=== PATIENT | female | born 1930 | race Caucasian/White ===

== ENCOUNTER 2017-01-31 10:45 | Inpatient (IN) | payer MEDICARE, OTHER ==
[~2017-01-31] VITALS: Ht 157.5 cm; Wt 75.0 kg
[~2017-01-31 10:45] MED LIST: ASCO-96 PO; CEFD300C37 PO; CITA40TA12 PO; CLON0.12 PO; DOCU-131 PO; DOXY100T PO; FURO-93 PO; GABA800T PO; HYDR-3307 PO; IRON1TAB62 PO; LACT1CAP24 PO; LEVO75TA PO; MORP15TA PO; OMEP20CA9 PO; OXYC5CAP2 PO; POTA20PA25 PO; TAMS-11 PO; TEMA30CA6 PO
[2017-01-31] MEDS ORDERED: CEFTRIAXONE PMX 1GM/50ML 50 ML IVPB ONE (11:30)
[2017-01-31] MEDS ORDERED: SODIUM CHLORIDE 0.9% 1,000ML IVBOLUS ONE ×2 (11:30→17:00)
[2017-01-31] MEDS ORDERED: ACETAMINOPHEN 500 MG TABLET PO ONE (11:30)
[2017-01-31] MEDS ORDERED: CEFTRIAXONE PMX 1GM/50ML 50 ML ONE (11:45)
[2017-01-31] MEDS ORDERED: ACETAMINOPHEN 500 MG TABLET ONE (11:45)
[2017-01-31] MEDS ORDERED: AZITHROMYCIN 500 MG in SODIUM CHLORIDE 0.9% 250 ML IV ONE (12:00)
[2017-01-31 12:08] LABS: HEMATOCRIT 35.1 % (34.6-47.8); HEMOGLOBIN 11.6 g/dL (11.7-16.4); WHITE BLOOD COUNT 12.3 x10^3/uL (3.4-10)
[2017-01-31 12:14] LABS: ASPARTATE AMINO TRANSFERASE 18 U/L (15-37); BLOOD UREA NITROGEN 12 mg/dL (7-18)
[2017-01-31] MEDS ORDERED: BISACODYL 10 MG SUPP PR PRN (13:00)
[2017-01-31] MEDS ORDERED: GUAIFENESIN/DM 200-20MG, 10ML UDC PO PRN ×2 (13:00)
[2017-01-31] MEDS ORDERED: ACETAMINOPHEN 325 MG TABLET PO PRN (13:00)
[2017-01-31] MEDS ORDERED: LABETALOL 5MG/ML, 20ML IVPush PRN (13:00)
[2017-01-31] MEDS ORDERED: ONDANSETRON 2MG/ML, 2ML IVPush PRN (13:00)
[2017-01-31] MEDS ORDERED: DOCUSATE 100 MG CAPSULE PO PRN (13:00)
[2017-01-31] MEDS ORDERED: HYDROcodone/APAP 5/325 TABLET PO PRN (13:00)
[2017-01-31] MEDS ORDERED: hydrALAzine 20 MG/ML, 1ML IVPush PRN (13:00)
[2017-01-31] MEDS ORDERED: POLYETHYLENE GLYCOL 17 GM PACKET PO PRN (13:00)
[2017-01-31] MEDS ORDERED: TRAZODONE 50MG TABLET PO PRN (13:00)
[2017-01-31] MEDS ORDERED: morphine SULFATE 10 MG/ML, 1ML IVPush PRN (13:00)
[2017-01-31] MEDS ORDERED: ONDANSETRON ODT 4 MG PO PRN (13:00)
[2017-01-31] MEDS: CEFTRIAXONE PMX 2GM/50ML 50 ML IV SCH (13:21)
[2017-01-31] MEDS ORDERED: ENOXAPARIN 40 MG/0.4 ML ONE (13:23)
[2017-01-31] MEDS: ENOXAPARIN 40 MG/0.4 ML SQ SCH (13:26)
[2017-01-31 14:54] VITALS: BP 103/61
[2017-01-31 14:57] VITALS: BP 103/61
[2017-01-31] MEDS ORDERED: OXYcodone IR 5MG TABLET PO SCH (16:00)
[2017-01-31] MEDS ORDERED: FLU VACC QS2017-18 (36MOS+) UP/PF 0.5 ML IM-VACC ONE (16:00)
[2017-01-31] MEDS ORDERED: GABAPENTIN 300 MG CAPSULE PO SCH (16:00)
[2017-01-31] MEDS: NS + 20MEQ KCL 1,000 ML IV SCH (16:12)
[2017-01-31 16:20] VITALS: BP 106/61
[2017-01-31 16:52] VITALS: BP 106/65
[2017-01-31] MEDS ORDERED: SODIUM CHLORIDE 0.9%, 500ML IVBOLUS ONE (17:00)
[2017-01-31] MEDS ORDERED: ALBUTEROL/IPRATROPIUM 2.5MG/0.5MG, 3 ML NPPB PRN (17:30)
[2017-01-31 19:35] VITALS: BP 116/63
[2017-01-31] MEDS: POTASSIUM CHLORIDE 20 MEQ PACKET PO SCH (19:53)
[2017-01-31] MEDS: DOCUSATE 100 MG CAPSULE PO SCH (19:53)
[2017-01-31] MEDS: OXYcodone IR 5MG TABLET PO PRN (19:54)
[2017-01-31] MEDS: DOXYCYCLINE 100MG TABLET PO SCH (19:54)
[2017-01-31] MEDS: TEMAZEPAM 30 MG CAPSULE PO SCH (19:54)
[2017-02-01 01:10] VITALS: BP 125/71
[2017-02-01] MEDS: OXYcodone IR 5MG TABLET PO PRN ×4 (01:16→18:32)
[2017-02-01] MEDS: NS + 20MEQ KCL 1,000 ML IV SCH (04:24)
[2017-02-01 05:05] LABS: HEMATOCRIT 29.3 % (34.6-47.8); HEMOGLOBIN 9.8 g/dL (11.7-16.4); WHITE BLOOD COUNT 8.2 x10^3/uL (3.4-10)
[2017-02-01 05:12] LABS: BLOOD UREA NITROGEN 10 mg/dL (7-18)
[2017-02-01] MEDS: LEVOTHYROXINE 75 MCG TABLET PO SCH (05:12)
[2017-02-01 07:05] VITALS: BP 125/79
[2017-02-01] MEDS: OMEPRAZOLE 20 MG CAPSULE.DR PO SCH (08:16)
[2017-02-01] MEDS: TAMSULOSIN 0.4 MG CAP.ER.24H PO SCH (08:29)
[2017-02-01] MEDS: PANTOPROZOLE 40MG TABLET PO SCH (08:29)
[2017-02-01] MEDS: DOCUSATE 100 MG CAPSULE PO SCH ×2 (08:29→20:27)
[2017-02-01] MEDS: POTASSIUM CHLORIDE 20 MEQ PACKET PO SCH ×2 (08:29→20:27)
[2017-02-01] MEDS: DOXYCYCLINE 100MG TABLET PO SCH ×2 (08:35→20:28)
[2017-02-01] MEDS ORDERED: FLU VACC QS2017-18 (36MOS+) UP/PF 0.5 ML IM-VACC ONE (09:00)
[2017-02-01] MEDS ORDERED: FUROSEMIDE 20 MG TABLET PO SCH (09:00)
[2017-02-01] MEDS ORDERED: [UNRECOGNIZED DRUG - OTHER] PO SCH (09:00)
[2017-02-01] MEDS: ENOXAPARIN 40 MG/0.4 ML SQ SCH (13:02)
[2017-02-01] MEDS: CEFTRIAXONE PMX 2GM/50ML 50 ML IV SCH (13:02)
[2017-02-01 14:16] VITALS: BP 147/72
[2017-02-01 19:10] VITALS: BP 148/74
[2017-02-01] MEDS: TEMAZEPAM 30 MG CAPSULE PO SCH (22:00)
[2017-02-02 01:30] VITALS: BP 138/69
[2017-02-02 05:18] LABS: HEMATOCRIT 31.7 % (34.6-47.8); HEMOGLOBIN 10.6 g/dL (11.7-16.4); WHITE BLOOD COUNT 5.3 x10^3/uL (3.4-10)
[2017-02-02] MEDS: OXYcodone IR 5MG TABLET PO PRN ×4 (05:19→16:40)
[2017-02-02] MEDS: LEVOTHYROXINE 75 MCG TABLET PO SCH (05:19)
[2017-02-02 05:21] LABS: BLOOD UREA NITROGEN 8 mg/dL (7-18)
[2017-02-02 06:54] VITALS: BP 131/80
[2017-02-02] MEDS: OMEPRAZOLE 20 MG CAPSULE.DR PO SCH (07:44)
[2017-02-02] MEDS: POTASSIUM CHLORIDE 20 MEQ PACKET PO SCH ×2 (08:13→22:09)
[2017-02-02] MEDS: DOCUSATE 100 MG CAPSULE PO SCH ×2 (08:14→22:08)
[2017-02-02] MEDS: DOXYCYCLINE 100MG TABLET PO SCH ×2 (08:16→21:00)
[2017-02-02] MEDS: PANTOPROZOLE 40MG TABLET PO SCH (08:18)
[2017-02-02] MEDS: TAMSULOSIN 0.4 MG CAP.ER.24H PO SCH (08:18)
[2017-02-02] MEDS: ENOXAPARIN 40 MG/0.4 ML SQ SCH (12:29)
[2017-02-02 12:59] VITALS: BP 136/69
[2017-02-02] MEDS: CEFTRIAXONE PMX 2GM/50ML 50 ML IV SCH (14:11)
[2017-02-02 18:40] VITALS: BP 142/70
[2017-02-02] MEDS: TEMAZEPAM 30 MG CAPSULE PO SCH (22:08)
[2017-02-03 02:12] VITALS: BP 153/75
[2017-02-03] MEDS: OXYcodone IR 5MG TABLET PO PRN ×3 (02:42→20:25)
[2017-02-03 05:25] LABS: HEMATOCRIT 31.2 % (34.6-47.8); HEMOGLOBIN 10.4 g/dL (11.7-16.4); WHITE BLOOD COUNT 4.8 x10^3/uL (3.4-10)
[2017-02-03 05:38] LABS: BLOOD UREA NITROGEN 7 mg/dL (7-18)
[2017-02-03] MEDS: LEVOTHYROXINE 75 MCG TABLET PO SCH (05:56)
[2017-02-03 07:05] VITALS: BP 147/80
[2017-02-03] MEDS: PANTOPROZOLE 40MG TABLET PO SCH (07:30)
[2017-02-03] MEDS: DOXYCYCLINE 100MG TABLET PO SCH ×2 (09:00→20:14)
[2017-02-03] MEDS: DOCUSATE 100 MG CAPSULE PO SCH ×2 (10:16→20:14)
[2017-02-03] MEDS: TAMSULOSIN 0.4 MG CAP.ER.24H PO SCH (10:16)
[2017-02-03] MEDS: OMEPRAZOLE 20 MG CAPSULE.DR PO SCH (10:16)
[2017-02-03] MEDS: POTASSIUM CHLORIDE 20 MEQ PACKET PO SCH ×2 (10:17→20:14)
[2017-02-03 13:03] VITALS: BP 136/76
[2017-02-03] MEDS: ENOXAPARIN 40 MG/0.4 ML SQ SCH (13:38)
[2017-02-03] MEDS: CEFTRIAXONE PMX 2GM/50ML 50 ML IV SCH (13:38)
[2017-02-03] MEDS: GABAPENTIN 300 MG CAPSULE PO SCH ×2 (16:07→20:14)
[2017-02-03 19:44] VITALS: BP 158/83
[2017-02-03] MEDS: TEMAZEPAM 30 MG CAPSULE PO SCH (22:02)
[2017-02-04 03:50] VITALS: BP 150/74
[2017-02-04] MEDS: LEVOTHYROXINE 75 MCG TABLET PO SCH (04:42)
[2017-02-04] MEDS: OXYcodone IR 5MG TABLET PO PRN ×3 (04:42→16:11)
[2017-02-04 07:29] VITALS: BP 126/69
[2017-02-04] MEDS ORDERED: OMEPRAZOLE 20 MG CAPSULE.DR PO SCH (07:30)
[2017-02-04] MEDS: TAMSULOSIN 0.4 MG CAP.ER.24H PO SCH (08:07)
[2017-02-04] MEDS: DOXYCYCLINE 100MG TABLET PO SCH (08:07)
[2017-02-04] MEDS: DOCUSATE 100 MG CAPSULE PO SCH (08:07)
[2017-02-04] MEDS: POTASSIUM CHLORIDE 20 MEQ PACKET PO SCH (08:08)
[2017-02-04] MEDS: GABAPENTIN 300 MG CAPSULE PO SCH ×2 (08:08→16:11)
[2017-02-04] MEDS: ENOXAPARIN 40 MG/0.4 ML SQ SCH (12:13)
[2017-02-04] MEDS ORDERED: DOXY100T PO (12:23)
[2017-02-04 14:05] VITALS: BP 137/70
[2017-02-04] MEDS: CEFTRIAXONE PMX 2GM/50ML 50 ML IV SCH (14:25)
[2017-02-05] MEDS ORDERED: OMEPRAZOLE 20 MG CAPSULE.DR PO SCH (07:30)
== END 2017-02-04 17:10 | DRG 871 ==
LOC: ED 12:52 → 4WST 14:51
PROVIDERS: ADMIT Hospitalist; ATTEND Hospitalist
PROC: 0T9B70Z Drainage of Bladder with Drainage Device, Via Natural or Artificial Opening (ICD-10-PCS; principal; 2017-01-31)
DX: A41.9 Sepsis, unspecified organism (principal); J18.9 Pneumonia, unspecified organism; J96.11 Chronic respiratory failure with hypoxia; Z99.81 Dependence on supplemental oxygen; E03.9 Hypothyroidism, unspecified; K21.9 Gastro-esophageal reflux disease without esophagitis; M79.7 Fibromyalgia; K59.09 Other constipation; F32.9 Major depressive disorder, single episode, unspecified; E78.5 Hyperlipidemia, unspecified; I10 Essential (primary) hypertension; Z87.01 Personal history of pneumonia (recurrent); Z90.710 Acquired absence of both cervix and uterus; Z90.722 Acquired absence of ovaries, bilateral; Z88.8 Allergy status to other drugs, medicaments and biological substances; Z88.1 Allergy status to other antibiotic agents; Z91.040 Latex allergy status; Z88.2 Allergy status to sulfonamides; Z23 Encounter for immunization
CPT/HCPCS: 36415; 71010; 74230; 80048; 80053; 80061; 81003; 82140; 83036; 83605; 83735; 84100; 84145; 84439; 84443; 85025; 85651; 87040; 90686; 93005; 93306; 94640; 96361; 96365; J0456; J0696; J1650; J3480; J7620; 92523-GN; J2270; J7030; J7040; J7050

== ENCOUNTER 2017-02-26 14:17 | Emergency (ER) | payer MEDICARE, OTHER ==
[~2017-02-26] VITALS: Ht 154.9 cm; Wt 69.0 kg
[2017-02-26] MEDS ORDERED: SODIUM CHLORIDE 0.9% 1,000 ML IV ONE (14:45)
[2017-02-26 16:03] LABS: HEMATOCRIT 32.1 % (34.6-47.8); HEMOGLOBIN 10.6 g/dL (11.7-16.4); WHITE BLOOD COUNT 10.6 x10^3/uL (3.4-10)
[2017-02-26 16:12] LABS: BLOOD UREA NITROGEN 10 mg/dL (7-18)
[2017-02-26] MEDS ORDERED: ALBUTEROL SULFATE 2.5 MG/3 ML ONE (17:21)
[2017-02-26] MEDS ORDERED: ALBUTEROL SULFATE 2.5 MG/3 ML NPPB ONE (17:30)
[2017-02-26] MEDS ORDERED: CLON-364 PO (18:02)
[2017-02-26 21:29] VITALS: BP 136/55
== END 2017-02-26 21:32 | disposition home or self-care (01) ==
LOC: ED 16:59
DX: R05 Cough (principal); M79.1 Myalgia; E78.5 Hyperlipidemia, unspecified; Z90.710 Acquired absence of both cervix and uterus; I10 Essential (primary) hypertension
CPT/HCPCS: 36415; 71010; 80048; 81001; 82040; 83605; 84145; 85025; 87040; 87086; 93005; 94640; 99285; J7613

== ENCOUNTER 2017-06-05 17:41 | Inpatient (IN) | payer MEDICARE, OTHER ==
[~2017-06-05] VITALS: Ht 149.9 cm; Wt 64.0 kg
[~2017-06-05 17:41] MED LIST changes: +CLON-364 PO
[2017-06-05] MEDS ORDERED: SODIUM CHLORIDE FLUSH 10ML SYR IVF ONE (18:00)
[2017-06-05] MEDS ORDERED: LORazepam 2 MG/ML, 1ML IVPush ONE (18:00)
[2017-06-05] MEDS ORDERED: SODIUM CHLORIDE 0.9% 1,000ML IVBOLUS ONE (18:00)
[2017-06-05 18:26] LABS: BASOPHILS # (AUTO) 0.03 x10^3/uL (0-0.1); BASOPHILS % (AUTO) 0 % (0-1); EOSINOPHILS # (AUTO) 0.02 x10^3/uL (0-0.4); EOSINOPHILS % (AUTO) 0 % (1-7); LYMPHOCYTES # (AUTO) 2.06 x10^3/uL (1-3.4); LYMPHOCYTES % (AUTO) 27 % (22-44); MD NO; MEAN CORPUSCULAR HEMOGLOBIN 29.7 pg (27.0-34.8); MEAN CORPUSCULAR HGB CONC 33.5 g/dL (32.4-35.8); MEAN CORPUSCULAR VOLUME 88.8 fL (80-100); MEAN PLATELET VOLUME 6.8 fL (7.4-10.4); MONOCYTES # (AUTO) 0.52 x10^3/uL (0.2-0.8); MONOCYTES % (AUTO) 7 % (2-9); NEUTROPHILS # (AUTO) 5.07 x10^3/uL (1.8-6.8); NEUTROPHILS % (AUTO) 66 % (42-75); PLATELET COUNT 287 x10^3/uL (130-400); RED BLOOD COUNT 4.89 x10^6/uL (3.82-5.3); RED CELL DISTRIBUTION WIDTH 13.1 % (9.6-15.2)
[2017-06-05] MEDS ORDERED: LORazepam 2 MG/ML, 1ML ONE (18:27)
[2017-06-05 18:32] LABS: ALANINE AMINOTRANSFERASE 13 U/L (12-78); ALBUMIN 3.9 g/dL (3.4-5.0); ANION GAP 7 mmol/L (5-15); CALCIUM 8.5 mg/dL (8.5-10.1); CHLORIDE 101 mmol/L (98-107); CREATININE 0.66 mg/dL (0.55-1.02)
[2017-06-05 18:35] LABS: ALKALINE PHOSPHATASE 91 U/L (45-117); BILIRUBIN,TOTAL 0.4 mg/dL (0.2-1.0)
[2017-06-05 18:37] LABS: TROPONIN I < 0.015 ng/mL (0.000-0.045)
[2017-06-05] MEDS ORDERED: morphine SULFATE 10 MG/ML, 1ML IVPush ONE (19:00)
[2017-06-05] MEDS ORDERED: MORPHINE SULFATE 4 MG/ML, 1ML ONE (19:07)
[2017-06-05 19:20] LABS: MICROSCOPIC NOT IND
[2017-06-05 19:21] LABS: CULTURE INDICATED? NO
[2017-06-05] MEDS ORDERED: DOXYCYCLINE 100MG TABLET PO SCH (21:00)
[2017-06-05] MEDS ORDERED: hydrALAzine 20 MG/ML, 1ML IVPush PRN (21:00)
[2017-06-05 21:07] VITALS: BP 171/70
[2017-06-05] MEDS: GABAPENTIN 300 MG CAPSULE PO SCH (22:43)
[2017-06-05] MEDS: TEMAZEPAM 30 MG CAPSULE PO SCH (22:43)
[2017-06-05] MEDS: SODIUM CHLORIDE FLUSH 10ML SYR IVF SCH (22:44)
[2017-06-05] MEDS: HEPARIN 5,000 UNITS/ML, 1ML SQ SCH (22:44)
[2017-06-05] MEDS: POTASSIUM CHLORIDE 20 MEQ PACKET PO SCH (22:45)
[2017-06-06 02:28] VITALS: BP 115/71
[2017-06-06 05:33] LABS: ANION GAP 6 mmol/L (5-15); CALCIUM 8.2 mg/dL (8.5-10.1); CHLORIDE 106 mmol/L (98-107)
[2017-06-06 05:50] VITALS: BP 147/78
[2017-06-06] MEDS: LEVOTHYROXINE 75 MCG TABLET PO SCH (05:59)
[2017-06-06] MEDS: OXYcodone IR 5MG TABLET PO PRN ×3 (05:59→19:22)
[2017-06-06 06:50] LABS: CREATININE 0.56 mg/dL (0.55-1.02)
[2017-06-06] MEDS: ACETAMINOPHEN 325 MG TABLET PO PRN ×2 (07:34→14:55)
[2017-06-06] MEDS: POTASSIUM CHLORIDE 20 MEQ PACKET PO SCH ×2 (09:00→21:43)
[2017-06-06] MEDS: HEPARIN 5,000 UNITS/ML, 1ML SQ SCH ×2 (09:07→15:37)
[2017-06-06] MEDS: SODIUM CHLORIDE FLUSH 10ML SYR IVF SCH ×2 (09:07→21:43)
[2017-06-06] MEDS: SENNA/DOCUSATE TABLET PO SCH (09:08)
[2017-06-06] MEDS: FUROSEMIDE 20 MG TABLET PO SCH (09:08)
[2017-06-06] MEDS: GABAPENTIN 300 MG CAPSULE PO SCH ×3 (09:08→21:42)
[2017-06-06] MEDS: OMEPRAZOLE 20 MG CAPSULE.DR PO SCH (11:20)
[2017-06-06 13:38] VITALS: BP 161/92
[2017-06-06 18:56] VITALS: BP 156/89
[2017-06-06] MEDS: TEMAZEPAM 30 MG CAPSULE PO SCH (21:43)
[2017-06-07] MEDS: HEPARIN 5,000 UNITS/ML, 1ML SQ SCH ×3 (00:41→16:13)
[2017-06-07 02:35] VITALS: BP 129/72
[2017-06-07] MEDS: OXYcodone IR 5MG TABLET PO PRN ×3 (02:46→19:35)
[2017-06-07 04:42] LABS: BASOPHILS # (AUTO) 0.06 x10^3/uL (0-0.1); BASOPHILS % (AUTO) 1 % (0-1); EOSINOPHILS # (AUTO) 0.11 x10^3/uL (0-0.4); EOSINOPHILS % (AUTO) 1 % (1-7); LYMPHOCYTES # (AUTO) 2.35 x10^3/uL (1-3.4); LYMPHOCYTES % (AUTO) 29 % (22-44); MD NO; MEAN CORPUSCULAR HEMOGLOBIN 29.4 pg (27.0-34.8); MEAN CORPUSCULAR HGB CONC 33.3 g/dL (32.4-35.8); MEAN CORPUSCULAR VOLUME 88.1 fL (80-100); MEAN PLATELET VOLUME 6.8 fL (7.4-10.4); MONOCYTES # (AUTO) 0.63 x10^3/uL (0.2-0.8); MONOCYTES % (AUTO) 8 % (2-9); NEUTROPHILS # (AUTO) 5.06 x10^3/uL (1.8-6.8); NEUTROPHILS % (AUTO) 62 % (42-75); PLATELET COUNT 279 x10^3/uL (130-400); RED BLOOD COUNT 4.81 x10^6/uL (3.82-5.3); RED CELL DISTRIBUTION WIDTH 13.3 % (9.6-15.2)
[2017-06-07 04:53] LABS: ALBUMIN 3.5 g/dL (3.4-5.0); ANION GAP 7 mmol/L (5-15); CALCIUM 8.5 mg/dL (8.5-10.1); CHLORIDE 103 mmol/L (98-107); CREATININE 0.59 mg/dL (0.55-1.02)
[2017-06-07] MEDS: LEVOTHYROXINE 75 MCG TABLET PO SCH (06:16)
[2017-06-07 07:04] VITALS: BP 141/84
[2017-06-07] MEDS: ACETAMINOPHEN 325 MG TABLET PO PRN ×2 (07:27→14:21)
[2017-06-07] MEDS: POTASSIUM CHLORIDE 20 MEQ PACKET PO SCH ×2 (09:00→21:04)
[2017-06-07] MEDS: GABAPENTIN 300 MG CAPSULE PO SCH ×3 (09:28→20:59)
[2017-06-07] MEDS: FLUOXETINE 10 MG CAP PO SCH (09:28)
[2017-06-07] MEDS: FUROSEMIDE 20 MG TABLET PO SCH (09:28)
[2017-06-07] MEDS: OMEPRAZOLE 20 MG CAPSULE.DR PO SCH (09:28)
[2017-06-07] MEDS: SENNA/DOCUSATE TABLET PO SCH (09:28)
[2017-06-07] MEDS: SODIUM CHLORIDE FLUSH 10ML SYR IVF SCH ×2 (09:29→21:04)
[2017-06-07] MEDS: POLYETHYLENE GLYCOL 17 GM PACKET PO PRN (09:29)
[2017-06-07 13:34] VITALS: BP 162/81
[2017-06-07] MEDS: BISACODYL 10 MG SUPP PR PRN (16:13)
[2017-06-07 19:01] VITALS: BP 131/87
[2017-06-07] MEDS: TEMAZEPAM 30 MG CAPSULE PO SCH (20:59)
[2017-06-08] MEDS: HEPARIN 5,000 UNITS/ML, 1ML SQ SCH ×3 (01:33→18:42)
[2017-06-08 02:08] VITALS: BP 138/80
[2017-06-08] MEDS: OXYcodone IR 5MG TABLET PO PRN ×4 (04:07→23:31)
[2017-06-08] MEDS: LEVOTHYROXINE 75 MCG TABLET PO SCH (06:27)
[2017-06-08] MEDS: ACETAMINOPHEN 325 MG TABLET PO PRN (06:27)
[2017-06-08 06:59] VITALS: BP 157/84
[2017-06-08] MEDS: FUROSEMIDE 20 MG TABLET PO SCH (09:00)
[2017-06-08] MEDS: FLUOXETINE 10 MG CAP PO SCH (10:38)
[2017-06-08] MEDS: OMEPRAZOLE 20 MG CAPSULE.DR PO SCH (10:38)
[2017-06-08] MEDS: POTASSIUM CHLORIDE 20 MEQ PACKET PO SCH ×2 (10:38→20:46)
[2017-06-08] MEDS: GABAPENTIN 300 MG CAPSULE PO SCH ×3 (10:38→20:45)
[2017-06-08] MEDS: SENNA/DOCUSATE TABLET PO SCH (10:38)
[2017-06-08] MEDS: SODIUM CHLORIDE FLUSH 10ML SYR IVF SCH ×2 (10:39→20:46)
[2017-06-08 13:57] VITALS: BP 162/88
[2017-06-08] MEDS ORDERED: LORazepam 2 MG/ML, 1ML IV PRN ×5 (19:00)
[2017-06-08] MEDS ORDERED: LORazepam 1MG TABLET PO PRN ×3 (19:00)
[2017-06-08 19:13] VITALS: BP 148/83
[2017-06-08] MEDS: LORazepam 1MG TABLET PO PRN ×2 (20:45→23:31)
[2017-06-09 00:46] VITALS: BP 127/75
[2017-06-09] MEDS: HEPARIN 5,000 UNITS/ML, 1ML SQ SCH ×3 (05:14→23:04)
[2017-06-09] MEDS: OXYcodone IR 5MG TABLET PO PRN ×2 (05:15→15:34)
[2017-06-09] MEDS: LEVOTHYROXINE 75 MCG TABLET PO SCH (05:15)
[2017-06-09 05:26] LABS: ANION GAP 8 mmol/L (5-15); CALCIUM 8.3 mg/dL (8.5-10.1); CHLORIDE 102 mmol/L (98-107); CREATININE 0.57 mg/dL (0.55-1.02)
[2017-06-09 07:36] VITALS: BP 131/81
[2017-06-09] MEDS: GABAPENTIN 300 MG CAPSULE PO SCH ×3 (08:34→23:04)
[2017-06-09] MEDS: FLUOXETINE 10 MG CAP PO SCH (08:34)
[2017-06-09] MEDS: OMEPRAZOLE 20 MG CAPSULE.DR PO SCH (08:34)
[2017-06-09] MEDS: SODIUM CHLORIDE FLUSH 10ML SYR IVF SCH ×2 (08:34→21:00)
[2017-06-09] MEDS: SENNA/DOCUSATE TABLET PO SCH (08:35)
[2017-06-09] MEDS: LORazepam 1MG TABLET PO PRN ×2 (08:35→13:06)
[2017-06-09] MEDS: POTASSIUM CHLORIDE 20 MEQ PACKET PO SCH (08:36)
[2017-06-09] MEDS: FUROSEMIDE 20 MG TABLET PO SCH (08:39)
[2017-06-09 13:56] VITALS: BP 143/77
[2017-06-09] MEDS: LORazepam 0.5MG TABLET PO PRN (17:27)
[2017-06-09 19:06] VITALS: BP 137/84
[2017-06-10 00:45] VITALS: BP 122/77
[2017-06-10] MEDS: OXYcodone IR 5MG TABLET PO PRN ×2 (01:01→23:01)
[2017-06-10] MEDS: LORazepam 0.5MG TABLET PO PRN ×2 (01:30→08:02)
[2017-06-10 05:45] LABS: ANION GAP 7 mmol/L (5-15); CALCIUM 8.3 mg/dL (8.5-10.1); CHLORIDE 99 mmol/L (98-107)
[2017-06-10 05:56] LABS: CREATININE 0.48 mg/dL (0.55-1.02); FREE T4 (FREE THYROXINE) 1.63 ng/dL (0.76-1.46)
[2017-06-10] MEDS: LEVOTHYROXINE 75 MCG TABLET PO SCH (06:30)
[2017-06-10 07:26] VITALS: BP 145/78
[2017-06-10] MEDS: FUROSEMIDE 20 MG TABLET PO SCH (08:02)
[2017-06-10] MEDS: FLUOXETINE 10 MG CAP PO SCH (08:02)
[2017-06-10] MEDS: SENNA/DOCUSATE TABLET PO SCH (08:02)
[2017-06-10] MEDS: OMEPRAZOLE 20 MG CAPSULE.DR PO SCH (08:02)
[2017-06-10] MEDS: GABAPENTIN 300 MG CAPSULE PO SCH (08:02)
[2017-06-10] MEDS: HEPARIN 5,000 UNITS/ML, 1ML SQ SCH ×3 (08:03→23:01)
[2017-06-10] MEDS: POTASSIUM CHLORIDE 20 MEQ PACKET PO SCH (08:03)
[2017-06-10] MEDS: SODIUM CHLORIDE FLUSH 10ML SYR IVF SCH ×2 (08:07→21:26)
[2017-06-10] MEDS ORDERED: LORazepam 0.5MG TABLET PO PRN (09:30)
[2017-06-10 14:32] VITALS: BP 134/81
[2017-06-10] MEDS: LORazepam 0.5MG TABLET PO SCH (15:35)
[2017-06-10] MEDS: GABAPENTIN 400 MG CAPSULE PO SCH ×2 (15:35→21:26)
[2017-06-10 19:30] VITALS: BP 129/74
[2017-06-10] MEDS: LORazepam 1MG TABLET PO SCH (21:26)
[2017-06-11 01:38] VITALS: BP 106/66
[2017-06-11] MEDS: LEVOTHYROXINE 75 MCG TABLET PO SCH (05:43)
[2017-06-11 07:26] VITALS: BP 137/80
[2017-06-11] MEDS: HEPARIN 5,000 UNITS/ML, 1ML SQ SCH ×3 (08:53→23:21)
[2017-06-11] MEDS: GABAPENTIN 400 MG CAPSULE PO SCH ×3 (08:54→21:26)
[2017-06-11] MEDS: SENNA/DOCUSATE TABLET PO SCH (08:54)
[2017-06-11] MEDS: OMEPRAZOLE 20 MG CAPSULE.DR PO SCH (08:55)
[2017-06-11] MEDS: POTASSIUM CHLORIDE 20 MEQ PACKET PO SCH (08:55)
[2017-06-11] MEDS: LORazepam 1MG TABLET PO SCH ×2 (08:56→21:26)
[2017-06-11] MEDS: FLUOXETINE 10 MG CAP PO SCH (08:56)
[2017-06-11] MEDS: FUROSEMIDE 20 MG TABLET PO SCH (09:00)
[2017-06-11] MEDS: TAMSULOSIN 0.4 MG CAP.ER.24H PO SCH (12:46)
[2017-06-11] MEDS: LORazepam 0.5MG TABLET PO SCH (12:46)
[2017-06-11 13:19] VITALS: BP 132/77
[2017-06-11] MEDS: OXYcodone IR 5MG TABLET PO PRN ×2 (14:04→21:26)
[2017-06-11] MEDS: SODIUM CHLORIDE FLUSH 10ML SYR IVF SCH ×2 (14:04→21:26)
[2017-06-11] MEDS: ACETAMINOPHEN 325 MG TABLET PO PRN ×2 (16:32→21:26)
[2017-06-11] MEDS: ONDANSETRON 2MG/ML, 2ML IVPush PRN (18:07)
[2017-06-11 19:35] VITALS: BP 110/67
[2017-06-11 20:45] LABS: CULTURE INDICATED? YES; MICROSCOPIC INDICATED
[2017-06-11] MEDS ORDERED: NITROFURANTOIN (MACROBID) 100 MG CAPSULE PO SCH (23:00)
[2017-06-12 01:01] VITALS: BP 107/67
[2017-06-12] MEDS: ACETAMINOPHEN 325 MG TABLET PO PRN ×3 (01:28→17:28)
[2017-06-12] MEDS: OXYcodone IR 5MG TABLET PO PRN ×3 (05:16→18:23)
[2017-06-12] MEDS: LEVOTHYROXINE 75 MCG TABLET PO SCH (05:16)
[2017-06-12 07:23] VITALS: BP 115/66
[2017-06-12] MEDS: HEPARIN 5,000 UNITS/ML, 1ML SQ SCH ×3 (07:53→21:50)
[2017-06-12] MEDS: SODIUM CHLORIDE FLUSH 10ML SYR IVF SCH ×2 (07:53→21:51)
[2017-06-12] MEDS: SENNA/DOCUSATE TABLET PO SCH (08:54)
[2017-06-12] MEDS: LORazepam 1MG TABLET PO SCH ×2 (08:54→21:50)
[2017-06-12] MEDS: GABAPENTIN 400 MG CAPSULE PO SCH (08:54)
[2017-06-12] MEDS: OMEPRAZOLE 20 MG CAPSULE.DR PO SCH (08:54)
[2017-06-12] MEDS: FLUOXETINE 10 MG CAP PO SCH (08:54)
[2017-06-12] MEDS: POTASSIUM CHLORIDE 20 MEQ PACKET PO SCH (09:02)
[2017-06-12] MEDS: TAMSULOSIN 0.4 MG CAP.ER.24H PO SCH (09:02)
[2017-06-12] MEDS: CEFTRIAXONE PMX 1GM/50ML 50 ML IV SCH (09:02)
[2017-06-12] MEDS: ONDANSETRON 2MG/ML, 2ML IVPush PRN (12:19)
[2017-06-12 12:44] VITALS: BP 125/71
[2017-06-12] MEDS: LORazepam 0.5MG TABLET PO SCH (13:28)
[2017-06-12] MEDS: GABAPENTIN 300 MG CAPSULE PO SCH ×2 (17:28→21:50)
[2017-06-12 19:34] VITALS: BP 143/77
[2017-06-13 01:22] VITALS: BP 116/75
[2017-06-13] MEDS: OXYcodone IR 5MG TABLET PO PRN ×3 (04:02→17:05)
[2017-06-13 05:29] LABS: ANION GAP 6 mmol/L (5-15); CALCIUM 8.4 mg/dL (8.5-10.1); CHLORIDE 101 mmol/L (98-107); CREATININE 0.52 mg/dL (0.55-1.02)
[2017-06-13 05:31] LABS: BASOPHILS # (AUTO) 0.04 x10^3/uL (0-0.1); BASOPHILS % (AUTO) 1 % (0-1); EOSINOPHILS # (AUTO) 0.13 x10^3/uL (0-0.4); EOSINOPHILS % (AUTO) 2 % (1-7); LYMPHOCYTES # (AUTO) 2.33 x10^3/uL (1-3.4); LYMPHOCYTES % (AUTO) 35 % (22-44); MD NO; MEAN CORPUSCULAR HEMOGLOBIN 29.5 pg (27.0-34.8); MEAN CORPUSCULAR HGB CONC 33.4 g/dL (32.4-35.8); MEAN CORPUSCULAR VOLUME 88.5 fL (80-100); MEAN PLATELET VOLUME 6.7 fL (7.4-10.4); MONOCYTES # (AUTO) 0.56 x10^3/uL (0.2-0.8); MONOCYTES % (AUTO) 8 % (2-9); NEUTROPHILS # (AUTO) 3.66 x10^3/uL (1.8-6.8); NEUTROPHILS % (AUTO) 54 % (42-75); PLATELET COUNT 239 x10^3/uL (130-400); RED BLOOD COUNT 4.11 x10^6/uL (3.82-5.3); RED CELL DISTRIBUTION WIDTH 13.3 % (9.6-15.2)
[2017-06-13] MEDS: LEVOTHYROXINE 75 MCG TABLET PO SCH (06:26)
[2017-06-13] MEDS: ACETAMINOPHEN 325 MG TABLET PO PRN ×2 (06:27→15:53)
[2017-06-13 06:54] VITALS: BP 118/70
[2017-06-13] MEDS: CEFTRIAXONE PMX 1GM/50ML 50 ML IV SCH (10:34)
[2017-06-13] MEDS: TAMSULOSIN 0.4 MG CAP.ER.24H PO SCH (10:35)
[2017-06-13] MEDS: SENNA/DOCUSATE TABLET PO SCH (10:35)
[2017-06-13] MEDS: OMEPRAZOLE 20 MG CAPSULE.DR PO SCH (10:35)
[2017-06-13] MEDS: HEPARIN 5,000 UNITS/ML, 1ML SQ SCH ×2 (10:35→17:05)
[2017-06-13] MEDS: SODIUM CHLORIDE FLUSH 10ML SYR IVF SCH ×2 (10:35→19:43)
[2017-06-13] MEDS: POTASSIUM CHLORIDE 20 MEQ PACKET PO SCH (10:35)
[2017-06-13] MEDS: GABAPENTIN 300 MG CAPSULE PO SCH (10:36)
[2017-06-13] MEDS: LORazepam 1MG TABLET PO SCH (10:36)
[2017-06-13] MEDS: FLUOXETINE 10 MG CAP PO SCH (10:37)
[2017-06-13] MEDS: LORazepam 0.5MG TABLET PO SCH (12:07)
[2017-06-13] MEDS: GABAPENTIN 400 MG CAPSULE PO SCH ×2 (15:53→19:42)
[2017-06-13] MEDS: BISACODYL 10 MG SUPP PR PRN (15:53)
[2017-06-13 19:08] VITALS: BP 124/63
[2017-06-13] MEDS: POLYETHYLENE GLYCOL 17 GM PACKET PO PRN (21:53)
[2017-06-14] MEDS: HEPARIN 5,000 UNITS/ML, 1ML SQ SCH ×2 (01:59→10:12)
[2017-06-14] MEDS: ACETAMINOPHEN 325 MG TABLET PO PRN ×2 (02:02→06:48)
[2017-06-14 02:15] VITALS: BP 145/70
[2017-06-14] MEDS: OXYcodone IR 5MG TABLET PO PRN ×3 (03:27→14:54)
[2017-06-14] MEDS: LEVOTHYROXINE 75 MCG TABLET PO SCH (05:53)
[2017-06-14] MEDS ORDERED: GABA-827 PO (06:48)
[2017-06-14] MEDS ORDERED: TAMS-11 PO (06:48)
[2017-06-14] MEDS ORDERED: FLUO10CA7 PO (06:48)
[2017-06-14] MEDS: SENNA/DOCUSATE TABLET PO SCH (07:42)
[2017-06-14] MEDS: FLUOXETINE 10 MG CAP PO SCH (07:42)
[2017-06-14] MEDS: GABAPENTIN 400 MG CAPSULE PO SCH (07:42)
[2017-06-14] MEDS: POTASSIUM CHLORIDE 20 MEQ PACKET PO SCH (07:42)
[2017-06-14] MEDS: OMEPRAZOLE 20 MG CAPSULE.DR PO SCH (07:42)
[2017-06-14] MEDS: TAMSULOSIN 0.4 MG CAP.ER.24H PO SCH (07:42)
[2017-06-14 08:31] VITALS: BP 161/75
[2017-06-14] MEDS ORDERED: CEFTRIAXONE 1,000 MG in SODIUM CHLORIDE 0.9% 50 ML IV SCH (09:00)
[2017-06-14] MEDS: SODIUM CHLORIDE FLUSH 10ML SYR IVF SCH (10:13)
== END 2017-06-14 16:39 | DRG 897 ==
LOC: ED 18:59 → EDIP 20:21 → 3NE 20:57
PROVIDERS: ADMIT Family Medicine; ATTEND Family Medicine
PROC: 0T9B70Z Drainage of Bladder with Drainage Device, Via Natural or Artificial Opening (ICD-10-PCS; principal; 2017-06-05)
PROC: 0T9B70Z Drainage of Bladder with Drainage Device, Via Natural or Artificial Opening (ICD-10-PCS; 2017-06-11)
DX: F11.23 Opioid dependence with withdrawal (principal); J96.10 Chronic respiratory failure, unspecified whether with hypoxia or hypercapnia; E87.1 Hypo-osmolality and hyponatremia; F33.1 Major depressive disorder, recurrent, moderate; N39.0 Urinary tract infection, site not specified; E03.9 Hypothyroidism, unspecified; F13.239 Sedative, hypnotic or anxiolytic dependence with withdrawal, unspecified; F43.10 Post-traumatic stress disorder, unspecified; G47.00 Insomnia, unspecified; G89.29 Other chronic pain; I10 Essential (primary) hypertension; K21.9 Gastro-esophageal reflux disease without esophagitis; K59.09 Other constipation; F41.9 Anxiety disorder, unspecified; M79.7 Fibromyalgia; Z90.710 Acquired absence of both cervix and uterus
CPT/HCPCS: 36415; 71045; 80048; 80053; 81001; 81003; 82040; 83735; 84439; 84443; 84484; 85025; 87077; 87086; 87186; 93005; 96374; 96375; J0696; J1644; J2405; J2060; J2270; J7030; Q0177